=== PATIENT | female | born 1980 | race Caucasian/White ===

== ENCOUNTER 2017-04-24 17:23 | Emergency (ER) | payer OTHER, SELFPAY ==
[2017-04-24 17:35] VITALS: BP 99/80; PULSE 94; RESP 20; TEMP 36.8; O2SAT 100; BMI 23.6
--- NOTE | 2017-04-24 17:55 | HMH.EDUTC ---
[facility] [place] Clinical Impression: Upper respiratory infection Qualifiers: URI type: unspecified URI Qualified Code(s): J06.9 - Acute upper respiratory infection, unspecified Disposition: Home, Self-Care Condition on Discharge: Good Instructions: Sore Throat, DI for Fever (Symptom) -- Adult Additional Instructions: * Monitor Temp. Tylenol and/or Ibuprofen as needed. ER if fever is no less than 101 despite alternating Tylenol and Ibuprofen * Encourage fluids, water, Gatorade, powerade, pedialyte if /toddler/or child * Warm salt water gargles for throat irritation *Warm fluids *Sore throat lozenges *Sleep elevated *humidifier or vaporizer Lots of rest Increase fluids, water, Gatorade, powerade *Your throat swab was sent to lab for culture. Those results area typically sent to your primary care physician. Be sure to follow up in 2-3 days if no improvement so they can review those results and treat if necessary If you dont have primary care I recommend you get one, but in the mean time you will have to return to a walk in clinic Follow up IMMEDIATELY for new or worsening of symptoms OR no noticeable improvement over the next 48-72 hours. 911 immediately for any life threatening symptoms such as chest pain or difficulty breathing Prescriptions: Cefdinir [Omnicef 300mg Capsule] 300 mg PO BID #20 cap predniSONE [Prednisone 5mg Tab Dose-Pack] 5 mg PO UD DOSE PK #1 pack Promethazine/Dextromethorphan [Promethazine-Dm Syrup] 5 ml PO Q4H PRN #200 syrup PRN Reason: Cough Time of Disposition: 18:04 Medical Decision Making - Medical Records Medical records reviewed: Yes: I reviewed the patient's medical records. Vital Signs: 04/24/17 17:35 Temperature 98.2 F Temperature Source Temporal Artery Scan Pulse Rate [Right] 94 H Respiratory Rate 20 Blood Pressure [Right Arm] 99/80 Blood Pressure Mean [Right Arm] 86 Blood Pressure Source [Right Arm] Automatic Cuff Blood Pressure Position [Right Arm] Sitting 02 Sat by Pulse Oximetry 100 Oxygen Delivery Method Room Air - Yovany Inquiry Pt receiving controlled substance: No Yovany was queried for this patient: No [facility] [place] HPI - General Stated complaint: sore throat Mode of Arrival: Ambulatory Source of Information: Patient Limitations: No Limitations Description of Symptoms (Recalled from Triage Doc. by RN): SORE THROAT, BODY ACHES 2 DAYS HEENT Symptoms (Recalled from RN notes): Yes Resp Symptoms (Recalled from RN notes): No Skin Symptoms (Recalled from RN notes): No MS Symptoms (Recalled from RN notes): No Functional Status (Recalled from RN notes): N - History of Present Illness Provider Complaint: Patient state that she has been having sore throat and body aches for 2 days that has continued to get worse States that her throat feels raw and hurts when she swallows State that her joints have been hurting and she noticed that her throat was really red and irritated - Related Data Previous Rx's Medication Instructions Recorded Cefdinir [Omnicef 300mg Capsule] 300 mg PO BID #20 cap 04/24/17 Promethazine/Dextromethorphan 5 ml PO Q4H PRN #200 syrup 04/24/17 [Promethazine-Dm Syrup] predniSONE [Prednisone 5mg Tab 5 mg PO UD DOSE PK #1 pack 04/24/17 Dose-Pack] Allergies Allergy/AdvReac Type Severity Reaction Status Date / Time No Known Allergies Allergy Verified 04/24/17 17:42 - Worker's Comp Is this a Worker's Comp case?: No [facility] History I have reviewed the patient's past medical history: Yes - *Social History Alcohol Intake: never - Psychiatric History Expresses thoughts of harming self/others: None Suicide Plan Description: No Plan ROS Obtained: Yes All systems reviewed & no additional complaints Physical Exam - General General appearance: alert, in no apparent distress - Expanded ENT Exam Nose exam: Present: sinus tenderness Comment: Throat red irritated, drainage noted in back of throat - Respiratory Respiratory exam:
[2017-04-24 17:58] LABS: UTC Influenza A Antigen Negative (Negative); UTC Influenza B Antigen Negative (Negative); UTC Strep Screen (Rapid) Negative (Negative)
--- NOTE | 2017-04-24 18:00 | ED_ITS ---
[facility] – [place] Dis[place] Clinical Impression: Upper respiratory infection Qualifiers: URI type: unspecified URI Qualified Code(s): J06.9 - Acute upper respiratory infection, unspecified Disposition: Home, Self-Care Condition on Discharge: Good Instructions: Sore Throat, DI for Fever (Symptom) -- Adult Additional Instructions: * Monitor Temp. Tylenol and/or Ibuprofen as needed. ER if fever is no less than 101 despite alternating Tylenol and Ibuprofen * Encourage fluids, water, Gatorade, powerade, pedialyte if /toddler/or child * Warm salt water gargles for throat irritation *Warm fluids *Sore throat lozenges *Sleep elevated *humidifier or vaporizer Lots of rest Increase fluids, water, Gatorade, powerade *Your throat swab was sent to lab for culture. Those results area typically sent to your primary care physician. Be sure to follow up in 2-3 days if no improvement so they can review those results and treat if necessary If you don? t have primary care I recommend you get one, but in the mean time you will have to return to a walk in clinic Follow up IMMEDIATELY for new or worsening of symptoms OR no noticeable improvement over the next 48-72 hours. 911 immediately for any life threatening symptoms such as chest pain or difficulty breathing Prescriptions: Cefdinir [Omnicef 300mg Capsule] 300 mg PO BID #20 cap predniSONE [Prednisone 5mg Tab Dose-Pack] 5 mg PO UD DOSE PK #1 pack Promethazine/Dextromethorphan [Promethazine-Dm Syrup] 5 ml PO Q4H PRN #200 syrup PRN Reason: Cough Time of Disposition: 18:04 Medical Decision Making - Medical Records Medical records reviewed: Yes: I reviewed the patient's medical records. Vital Signs: 04/24/17 17:35 Temperature 98.2 F Temperature Source Temporal Artery Scan Pulse Rate [Right] 94 H Respiratory Rate 20 Blood Pressure [Right Arm] 99/80 Blood Pressure Mean [Right Arm] 86 Blood Pressure Source [Right Arm] Automatic Cuff Blood Pressure Position [Right Arm] Sitting 02 Sat by Pulse Oximetry 100 Oxygen Delivery Method Room Air - Yovany Inquiry Pt receiving controlled substance: No Yovany was queried for this patient: No [facility] [place] HPI - General Stated complaint: sore throat Mode of Arrival: Ambulatory Source of Information: Patient Limitations: No Limitations Description of Symptoms (Recalled from Triage Doc. by RN): SORE THROAT, BODY ACHES 2 DAYS HEENT Symptoms (Recalled from RN notes): Yes Resp Symptoms (Recalled from RN notes): No Skin Symptoms (Recalled from RN notes): No MS Symptoms (Recalled from RN notes): No Functional Status (Recalled from RN notes): N - History of Present Illness Provider Complaint: Patient state that she has been having sore throat and body aches for 2 days that has continued to get worse States that her throat feels raw and hurts when she swallows State that her joints have been hurting and she noticed that her throat was really red and irritated - Related Data Previous Rx's Medication Instructions Recorded Cefdinir [Omnicef 300mg Capsule] 300 mg PO BID #20 cap 04/24/17 Promethazine/Dextromethorphan 5 ml PO Q4H PRN #200 syrup 04/24/17 [Promethazine-Dm Syrup] predniSONE [Prednisone 5mg Tab 5 mg PO UD DOSE PK #1 pack 04/24/17 Dose-Pack] Allergies Allergy/AdvReac Type Severity Reaction Status Date / Time No Known Allergies Allergy Verified 04/24/17 17:42 - Wo
== END 2017-04-24 18:07 | disposition home or self-care (01) ==
PROVIDERS: Emergency Provider Nurse Practitioner
DX: J06.9 Acute upper respiratory infection, unspecified (principal)
CPT/HCPCS: 87804; 87880; 99202

== ENCOUNTER 2017-05-25 16:20 | Emergency (ER) | payer OTHER, SELFPAY ==
[2017-05-25 16:45] VITALS: BP 116/71; PULSE 70; RESP 20; TEMP 36.6; O2SAT 100; BMI 23.3
[2017-05-25 16:52] LABS: Apearance,Urine Cloudy (Clear); Bilirubin,Urine Negative (Negative); Blood, Urine Negative (Negative); Color,Urine Yellow (Yellow); Glucose,Urine (UA) Negative (Negative); Ketones,Urine Negative (Negative); PH,Urine 5.5 (5.0-8.5); Protein,Urine Trace (Negative); UTC Leukocyte Esterase,Urine Negative (Negative); Urobilinogen,Urine 0.2 EU/dl (0.2)
[2017-05-25 16:53] LABS: UTC Nitrate,Urine Negative (Negative); UTC Pregnancy Test, Urine Negative (Negative)
--- NOTE | 2017-05-25 17:05 | PC.NURSE ---
Triage nurse alerted me to patient's symptoms. VORB for u/a and urine . Both negative. Discussed HPI with pt. Started as bilateral lower back pain approx 2 weeks ago but has progressively gotten worse and throughout lower abdomen as well now. Hesitant to move or sit because worsens pain. Wearing maternity pants because regular pants hurt abdomen. Won't pick up driver child due to pain. Constant dull pain with intermittent sharp pains 9/10 despite eating advil like crazy . Nausea but no vomiting, diarrhea, fever. CERTIFIED OPHTHALMIC MEDICAL TECHNICIAN appt 06/12. Tried to get in sooner but not able. Discussed possible differentials and [facility] guidelines. Pt ok with transfer to ER for full abdominal pain evaluation. Report called to Alexandria Corea MITER OPERATOR. Bed 10 available. Report also given to Dr. Palacio, ER MD
[2017-05-25 17:20] VITALS: BP 109/73; PULSE 76; RESP 18; TEMP 37.2; O2SAT 100; BMI 23.3
--- NOTE | 2017-05-25 18:18 | US_ITS ---
US transvaginal Ordering Physician: Jason Dallas MD Patient Age: 36 years: Female HISTORY: ITS.REASON: pelvic pain, hx of endometriosis, ovarian cysts Right lower quadrant pain 3 days. HISTORY of cyst TECHNIQUE: Transvaginal pelvic ultrasound COMPARISON : FINDINGS Uterus appears upper normal in size. 9.6 cm length x 3.8 cm x 5.5 cm wide. Generous endometrial stripe measuring up to 1 cm maximally. A few of the images I question there could be a developing fibroid posteriorly at the upper body of uterus. This does not persist was not seen at real-time imaging by technologist. scar seen at the anterior aspect of lower uterus typical location. Nabothian cyst are noted. Towards cervical canal. The largest 7.3 mm size. Right ovaryl 2.8 cm length x 1.5 cm x 2.14 cm. Left ovary 3.4 cm x 2.4 cm. 1.7 cm. Scattered small follicles with the largest measuring 1 cm. Other tiny follicles about margin left ovary. No fluid the cul-de-sac. IMPRESSION: 1. Uterus upper normal size. Generous endometrial stripe measuring up to 1 cm maximally 2. Ovaries within normal limits. . left slight more generous than the right. Small follicles, both ovaries .. Small 1 cm follicle left ovary most notable No fluid in cul-de-sac
--- NOTE | 2017-05-25 18:49 | HMH.EDGENADL ---
ED Disposition Clinical Impression: Muscle strain Low back pain Qualifiers: Chronicity: acute Back pain laterality: unspecified Sciatica presence: without sciatica Qualified Code(s): M54.5 - Low back pain Ovarian cyst Qualifiers: Laterality: unspecified laterality Qualified Code(s): N83.209 - Unspecified ovarian cyst, unspecified side Disposition: Home, Self-Care Condition on Discharge: Good Instructions: DI for Muscle Strain Additional Instructions: Please apply Voltaren ointment over the affected area, take Tylenol as needed for pain, every 4-6 hours, find attached prescription for a muscle relaxant (Flexeril). Follow-up with 1 of the local fixture designer, Dr. Judah Martini if not better within the next 2-3 days. Prescriptions: Cyclobenzaprine HCl [Flexeril 10mg tablet] 10 mg PO TID #30 tab Referrals: Jamison Waldrop MD [Staff Physician] - Herb Martini MD [Staff Physician] - Time of Disposition: 18:49 - Critical Care Critical Care Time: No Attestation: On 05/25/17, the high probability of a clinically significant, sudden or life threatening deterioration of the following system(s) required my full and direct attention, intervention and personal management. The time I documented below is in addition to time spent performing reported procedures but includes the following listed in this critical care notation. Medical Decision Making - Medical Records Medical records reviewed: Yes: I reviewed the patient's medical records. Vital Signs: 05/25/17 16:45 05/25/17 17:20 05/25/17 19:02 Temperature 98 F 99.0 F 99.0 F Temperature Source Temporal Artery Scan Oral Pulse Rate 76 Pulse Rate [Right Radial] 70 76 Respiratory Rate 20 18 18 Blood Pressure 109/73 Blood Pressure [Right Arm] 116/71 109/73 Blood Pressure Mean [Right Arm] 86 85 Blood Pressure Source [Right Arm] Automatic Cuff Automatic Cuff Blood Pressure Position [Right Arm] Sitting Sitting 02 Sat by Pulse Oximetry 100 100 Oxygen Delivery Method Room Air Room Air Room Air - Lab Data Lab results reviewed: Yes: I reviewed the patient's lab results. Lab Results 05/25/17 16:43: Urine Color Yellow, Urine Appearance Cloudy, Urine pH 5.5, Ur Specific [place] 1.030, Urine Protein Trace, Urine Glucose (UA) Negative, Urine Ketones Negative, Urine Blood Negative, Urine Nitrate Negative, Urine Bilirubin Negative, Urine Urobilinogen 0.2, Ur Leukocyte Esterase Negative, Tst Clinic Negative - US Data US Images: Other (Transvaginal) ED US Reviewed: Yes: I have viewed radiologist's interpretation Findings Narrative: Small left ovarian cyst, fluid in the cul-de-sac - Yovany Inquiry Pt receiving controlled substance: No - Reevaluation(s) Time: 18:44 Reevaluation #1: Upon reevaluation patient appears medically stable, in no acute distress, advised of results obtained, need to follow-up with BLASTING WORKER for additional outpatient workup. General Adult HPI - General Chief complaint: PAIN Stated complaint: lower abd&back Mode of Arrival: Ambulatory Limitations: No Limitations Description of Symptoms (Recalled from ER Triage Doc. by RN): Pt reports lower back pain x1 week, reports pain is radiating around to pelvic area x2 days, describes pain at pressure like in nature. 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 Patient denies any vaginal discharge, nausea, vomiting, fever or diarrhea. She was sent from [facility] to be evaluated in the emergency room. - Related Data Home Medications Medication Instructions Recorded Confirmed Cyanocobalamin (Vitamin B-12) 500 mcg PO DAILY 05/25/17 05/25/17 [Vitamin B-12] Escitalopram Oxalate 20 mg PO DAILY 05/25/17 05/25/17 Previous Rx's
[2017-05-25 19:02] VITALS: BP 109/73; PULSE 76; RESP 18; TEMP 37.2; O2SAT 100
== END 2017-05-25 19:09 | disposition home or self-care (01) ==
LOC: UTC 16:26 → ER 17:16
PROVIDERS: Nurse Practitioner Family; Emergency Provider Emergency Medicine
DX: T14.8XXA Other injury of unspecified body region, initial encounter (principal); M54.5 Low back pain; N83.209 Unspecified ovarian cyst, unspecified side; Z79.899 Other long term (current) drug therapy
CPT/HCPCS: 76830; 81003; 81025; 99283

== ENCOUNTER → 2019-09-21 09:11 | Outpatient (CLI) | payer BC, SELFPAY ==
--- NOTE | 2019-09-21 | CA_ITS ---
APPROVED REPORT EXAM: Comprehensive 2D, Doppler, and color-flow Echocardiogram Television Service Engineer: Emerald Chavez CRT Ht: 5 ft 9 in Wt: 155lbs BSA: 1.85 BP: 110/70 mmHg Indications: CP, PALPITATIONS, LOOP RECORDER SINCE 2018, EDEMA 2D Dimensions LVOT 1.85 cm (M/F) 1.5-2.5 M-Mode Dimensions RVDd 2.64 cm (0.9-2.6) LVDd 4.29 cm (3.5-5.7) LVDs 2.99 cm (3.5-5.7) IVSd 1.30 cm (0.6-1.1) PWd 0.78 cm (0.6-1.1) EF (Teich) 58.00% FS 30.30% EDV (Teich) 82.60 mL ESV (Teich) 34.70 mL LV Diastology E/A Ratio 1.69 Mitral Valve MV A Velocity 46.00 (40-130 cm/s) Left Ventricle Left atrium is normal size, left ventricle is normal size, there is no concentric left ventricular hypertrophy, visually estimated ejection fraction 55% with no regional wall motion abnormality, diastolic parameters are within normal range. Right Ventricle Right atrium and right ventricle are normal size and contractility. Aortic Valve Aortic valve is grossly normal, there is no aortic stenosis or aortic insufficiency. Mitral Valve Mitral valve is grossly normal, there is trace mitral regurgitation. Tricuspid Valve Tricuspid valve is grossly normal, there is trace tricuspid regurgitation. Pulmonic Valve Pulmonic valve is poorly visualized. Great Vessels Aortic root is normal size. Pericardium No significant pericardial effusion noted. Conclusion 1. Normal left ventricular size, preserved left ventricular systolic function, visually estimated ejection fraction 55% with no regional wall motion abnormality, diastolic parameters are within normal range. 2. Trace mitral and tricuspid regurgitation. 3. No significant pericardial effusion noted. Electronically signed by : Rodrigo Crawford, 09/22/2019 12:17:49
== END ==
PROVIDERS: PCP Family Medicine; Visit Provider Family Medicine
DX: R07.89 Other chest pain (principal); R00.2 Palpitations
CPT/HCPCS: 93306

== ENCOUNTER → 2019-11-18 11:21 | Outpatient (CLI) | payer BC, SELFPAY ==
--- NOTE | 2019-11-18 11:40 | XR_ITS ---
PROCEDURE: XR LUMBAR SPINE MIN 4V CLINICAL INDICATION: LUMBAGO W SCIATICA, L SIDE COMPARISON: No exams were available for comparison FINDINGS: There is mild diffuse dextroscoliotic curvature between T10 and L5 measuring 13 degrees. All lumbar vertebrae appear intact and disc spaces appear normal throughout. There is no pars defect. The SI joints appear normal. IMPRESSION: Mild dextroscoliotic curvature, no other significant bony pathology identified Dictated by: Dr. Jason Zamudio MD 11/18/2019 12:08 Dr. Jason Zamudio MD in [place] 11/18/2019 12:08
== END ==
PROVIDERS: PCP Nurse Practitioner; Visit Provider Nurse Practitioner
DX: M54.42 Lumbago with sciatica, left side (principal)
CPT/HCPCS: 72110

== ENCOUNTER → 2019-11-25 13:04 | Outpatient (CLI) | payer BC, SELFPAY ==
--- NOTE | 2019-11-25 | MR_ITS ---
PROCEDURE: MR LUMBAR SPINE WO CON CLINICAL INDICATION: LBP Lbp with bilateral lower extremity pain. No injury or trauma. Prior x-ray 11-18-19 COMPARISON: CR XR LUMBAR SPINE MIN 4V from 11/18/2019 TECHNIQUE: Standard multiplanar multiecho sequences are performed without contrast. 3-D MIP and myelographic images are also rendered and reviewed FINDINGS: There is normal alignment. The spinal cord ends at the T12-L1 level. L1-L2: Unremarkable. L2-L3: Unremarkable. L3-L4: Unremarkable. L4-5: Minimal bulging disc with mild disc desiccation and mild facet and ligamentum hypertrophy. There is mild bilateral lateral recess narrowing and mild bilateral foraminal narrowing. L5-S1: Mild facet and ligamentum hypertrophy with minimal bulging disc IMPRESSION: 1. L4-5: Minimal bulging disc with mild disc desiccation and mild facet and ligamentum hypertrophy. There is mild bilateral lateral recess narrowing and mild bilateral foraminal narrowing. 2. L5-S1: Mild facet and ligamentum hypertrophy with minimal bulging disc 3. No disc herniation or canal stenosis Dictated by: Nick Mar MD 11/27/2019 11:07 Nick Mar MD in [place] 11/27/2019 11:07
== END ==
PROVIDERS: PCP Nurse Practitioner; Visit Provider Nurse Practitioner
DX: M54.5 Low back pain (principal); M54.10 Radiculopathy, site unspecified
CPT/HCPCS: 72148; 76376

== ENCOUNTER → 2021-02-08 16:44 | Outpatient (CLI) | payer BC, SELFPAY ==
--- NOTE | 2021-02-08 16:51 | XR_ITS ---
PROCEDURE INFORMATION: Exam: XR Chest Exam date and time: 02/08/2021 4:51 PM Age: 40 years old Clinical indication: Other: Covid patient; Additional info: Covid outpatient TECHNIQUE: Imaging protocol: XR of the chest. Views: 1 view. COMPARISON: CR CXR CHEST(2 VIEWS-NOT PORTABLE) 06/29/2014 9:12 AM FINDINGS: Tubes, catheters and devices: Electronic device projecting over the left thoracic wall soft tissues. Airway: Patent Lungs: Unremarkable. No consolidation. Pleural spaces: Unremarkable. No pleural effusion. No pneumothorax. Heart/Mediastinum: Unremarkable. No cardiomegaly. Bones/joints: No acute skeletal abnormality or aggressive osseous lesion. IMPRESSION: Negative for acute thoracic pathology.
[2021-02-08 17:42] LABS: Adenovirus,PCR Not Detected (NotDetected); Bordetella Pertussis Not Detected (NotDetected); Chlamydophila Pneumoniae, PCR Not Detected (NotDetected); Coronavirus 19, PCR Not Detected (NotDetected); Coronavirus 229E Not Detected (NotDetected); Coronavirus NL63 Not Detected (NotDetected); Coronavirus OC43 Not Detected (NotDetected); Coronovirus HKU1,PCR Not Detected (NotDetected); Human Metapneumovirus Not Detected (NotDetected); Influenza A, PCR Not Detected (NotDetected); Influenza AH1, 2009 Not Detected (NotDetected); Influenza AH1, PCR Not Detected (NotDetected); Influenza AH3,PCR Not Detected (NotDetected); Influenza B, PCR Not Detected (NotDetected); Mycoplasma Pneumoniae, PCR Not Detected (NotDetected); Parainfluenza 1, PCR Not Detected (NotDetected); Parainfluenza 2, PCR Not Detected (NotDetected); Parainfluenza 3, PCR Not Detected (NotDetected); Parainfluenza 4, PCR Not Detected (NotDetected); Respiratory Syncytial Virus Not Detected (NotDetected); Rhinovirus/Enterovirus Not Detected (NotDetected)
[2021-02-08 18:34] LABS: Chloride 104 mmol/L (98-107); Potassium 3.7 mmoL/L (3.5-5.1); Sodium 140 mmol/L (136-145)
[2021-02-08 18:36] LABS: Basophils # 0.2 K/mm3 (0-0.2); Basophils % 2.2 % (0.1-2.0); Blood Urea Nitrogen 14 mg/dl (7-17); Eosinophils # 0.9 K/mm3 (0.0-0.4); Eosinophils % 12.6 % (0.1-12.0); Estimated Glomerular Filt Rate 92 ml/min (>60); GFR (African American) 112 ML/MIN (>60); Hematocrit 43.2 % (37.0-47.0); Hemoglobin 14.5 g/dL (12.2-16.2); Lymphocytes # 2.7 K/mm3 (0.7-4.5); Lymphocytes % 37.4 % (10-50); Mean Corpuscular HGB Conc 33.5 g/dL (31.8-35.4); Mean Corpuscular Hemoglobin 30.9 pg (27.0-31.2); Mean Corpuscular Volume 92.2 fl (81-99); Mean Platelet Volume 8.4 fl (7.4-10.4); Monocytes # 0.4 K/mm3 (0.1-1.0); Monocytes % 5.6 % (1.7-9.3); Neutrophils # 3.1 K/mm3 (1.8-7.8); Neutrophils % 42.3 % (37.0-80.0); Platelet Count 269 K/mm3 (142-424); Red Blood Count 4.69 M/mm3 (4.20-5.40); Red Cell Distribution Width 13.4 % (11.5-17.5); White Blood Count 7.3 K/mm3 (4.8-10.8)
[2021-02-08 18:37] LABS: Alanine Aminotransferase 8 U/L (12-78); Albumin Level 4.6 g/dl (3.5-5.0); Albumin/Globulin Ratio 1.8 (1.1-1.8); Alkaline Phosphatase 52 U/L (38-126); Anion Gap 12.7 mEq/L (5-15); Aspartate Amino Transferase 24 U/L (14-36); Bilirubin,Total 0.8 mg/dl (0.2-1.3); Calcium 9.6 mg/dl (8.4-10.2); Carbon Dioxide 27 mmol/L (22.0-30.0); Globulin 2.6 g/dL (1.3-3.2); Glucose 119 mg/dl (74-100); Total Protein,Serum 7.2 g/dl (6.3-8.2)
[2021-02-08 18:43] LABS: C-Reactive Protein < 0.3 mg/L (0-4)
[2021-02-08 18:58] LABS: Monoscreen (Rapid) Negative (Negative)
[2021-02-08 19:00] LABS: Erythrocyte Sedimentation Rate 12 mm/hr (0-20)
[2021-02-08 19:22] LABS: 25-OH Vitamin D, Total 47.6 ng/mL (30-100)
== END ==
LOC: RAD 16:48 → COVID.OUT 17:11
PROVIDERS: PCP Nurse Practitioner; Visit Provider Nurse Practitioner
DX: Z20.822 Contact with and (suspected) exposure to COVID-19 (principal); R09.89 Other specified symptoms and signs involving the circulatory and respiratory systems; J06.9 Acute upper respiratory infection, unspecified; R53.83 Other fatigue; R52 Pain, unspecified
CPT/HCPCS: 71045; 80053; 82306; 85025; 85651; 86140; 86318; 87581; 87632; 87798; C9803; U0003; U0005

== ENCOUNTER → 2021-04-02 14:47 | Outpatient (CLI) | payer BC, SELFPAY | PROVIDERS: PCP Nurse Practitioner; Visit Provider Nurse Practitioner | DX: Z20.822 Contact with and (suspected) exposure to COVID-19 (principal) | CPT/HCPCS: C9803; U0003; U0005 ==

== ENCOUNTER 2021-04-12 14:21 | Emergency (ER) | payer BC, SELFPAY ==
--- NOTE | 2021-04-12 16:25 | HMH.EDUTC ---
[facility] [place]ression: Migraine Qualifiers: Migraine type: with aura Status migrainosus presence: without status migrainosus Intractability: not intractable Qualified Code(s): G43.109 - Migraine with aura, not intractable, without status migrainosus Disposition: Home, Self-Care Condition on Discharge: Good Instructions: DI for Migraine Additional Instructions: Drink plenty of fluids. Go home and rest. Follow up with your regular doctor. GO TO THE ER FOR ANY WORSENING SYMPTOMS Prescriptions: Ibuprofen [Ibuprofen 800mg Tablet] 800 mg PO Q8HP PRN #30 tab PRN Reason: Moderate Pain Transmission Status: Received by [facility] Promethazine HCl [Phenergan 25mg tab] 25 mg PO Q6H PRN #20 tab PRN Reason: Nausea And Vomiting Transmission Status: Received by [facility] Referrals: Raquel Alfaro APRN [Primary Care Provider] - Forms: Work/School Release Time of Disposition: 17:00 Medical Decision Making - Medical Records Medical records reviewed: No: I reviewed the patient's medical records. - Yovany Inquiry Pt receiving controlled substance: No Vital Signs: 04/12/21 16:32 04/12/21 16:50 Temperature 98.4 F 98.4 F Temperature Source Oral Pulse Rate 83 Pulse Rate [Left] 83 Respiratory Rate 18 18 Blood Pressure 119/79 Blood Pressure [Right Arm] 119/79 Blood Pressure Mean [Right Arm] 92 02 Sat by Pulse Oximetry 100 Orders (Tests/Meds): ED MEDICATIONS Discontinued Medications Generic Name Dose Route Start Last Admin Trade Name Freq PRN Reason Stop Dose Admin Ketorolac Tromethamine 60 mg 04/12/21 16:44 04/12/21 16:45 Ketorolac 60mg/2ml Vial IM 04/12/21 16:45 60 mg ONCE ONE Administration Methylprednisolone Sodium Succinate 125 mg 04/12/21 16:44 04/12/21 16:45 Methylprednisolone Sod Succ 125mg Vial IM 04/12/21 16:45 125 mg ONCE ONE Administration Promethazine HCl 25 mg 04/12/21 16:44 04/12/21 16:45 Promethazine Hcl 25mg/Ml 1ml Vial IM 04/12/21 16:45 25 mg ONCE ONE Administration [facility] [place] - General Stated complaint: h/a Time Seen by Provider: 04/12/21 16:25 - History of Present Illness Provider Complaint: She states that she has a migraine head ache that has been ongoing since yesterday. She does not get migraines frequently, but she has had a few in the past and she feels like that is what's going on now. She denies that this is the worst headache of her life. She denies any visual changes. She denies fever/chills/cough/congestion. She has had a negative covid-19 test yesterday. - Related Data Home Medications Medication Instructions Recorded Confirmed Cyanocobalamin (Vitamin B-12) 500 mcg PO DAILY 05/25/17 05/25/17 [Vitamin B-12] Escitalopram Oxalate 20 mg PO DAILY 05/25/17 05/25/17 Previous Rx's Medication Instructions Recorded Cyclobenzaprine HCl [Flexeril 10mg 10 mg PO TID #30 tab 05/25/17 tablet] Ibuprofen [Ibuprofen 800mg 800 mg PO Q8HP PRN #30 tab 04/12/21 Tablet] Promethazine HCl [Phenergan 25mg 25 mg PO Q6H PRN #20 tab 04/12/21 tab] Allergies Allergy/AdvReac Type Severity Reaction Status Date / Time No Known Allergies Allergy Verified 04/24/17 17:42 [facility] History - Hepatitis A Screen Attestation statement:: This patient has been screened for Hepatitis A risk factors. I have reviewed the patient's past medical history: Yes Medical History: Denies:: Cancer, Diabetes Mellitus Type 1, Diabetes Mellitus Type 2, MRSA Amputation: No - Social History Smoking Status: Never smoker Alcohol Intake: never ROS Obtained: Yes All systems reviewed & no additional complaints - Constitutional Constitutional: Reports as per HPI - Eyes Eyes: Denies eye discharge - ENT Ears, Nose, Mouth, and Throat: Denies dizziness, Denies otalgia, Denies sore throat, Denies vertigo/dizziness - Cardiovascular Cardiovascular: Denies chest pain
[2021-04-12 16:32] VITALS: BP 119/79; PULSE 83; RESP 18; TEMP 36.9; O2SAT 100; BMI 22.8
[2021-04-12 16:50] VITALS: BP 119/79; PULSE 83; RESP 18; TEMP 36.9
== END 2021-04-12 17:04 | disposition home or self-care (01) ==
LOC: UTC 14:23
PROVIDERS: Emergency Provider Nurse Practitioner Family; PCP Nurse Practitioner
DX: G43.109 Migraine with aura, not intractable, without status migrainosus (principal)
CPT/HCPCS: 96372; 99202; G0463

== ENCOUNTER 2021-05-17 15:30 | Outpatient (RCR) | payer BC, SELFPAY ==
--- NOTE | 2021-05-17 16:43 | HMH.RHREAS ---
Rehab Reassessment Rehab OP Re-assessment Start: 05/17/21 16:05 Freq: Status: Active Protocol: Document 05/17/21 16:07 JEVON (Rec: 05/17/21 16:25 JEVON [id number]) Electronically Signed By Damian Degroot, PT 05/17/21 16:07 Rehab Re-assessment Subjective Subjective Patient reports 40% improvement since start of care. Objective Objective Notes AROM: WFL MMT: WFL Pain: 2/10 currently; 8/10 at worst over past week Neuro: overall decreased frequency/intensity/duration of burning sensation of L 4/ 5 dermatomes. Special tests: - slump Assessment Progress Assessment Progressing as Expected Assessment Notes Patient is tolerating progression well. She has been seen for 3 treatment visits to date. Compliance noted with HEP. 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 She would benefit from continuing skilled PT services in order to address functional limitations with all bending/ lifting and work related activitie, as well as to progress core stabilization. Patient goals met STG 2 Goals Not Met All others Revised Goals NA Plan Plan Continue with current POC. Frequency of Therapy 2x/week Duration of therapy 4 weeks Time and Billing Re-Eval Time 15 Re-Eval Billing Units 1 PHYSICIAN CERTIFICATION: I certify the specified therapy services for Corie Ballard are required, authorized, and reviewed every 30 days.
== END 2021-05-17 15:35 | disposition home or self-care (01) ==
LOC: PT 15:30
PROVIDERS: PCP Nurse Practitioner; Visit Provider Nurse Practitioner
DX: M51.36 Other intervertebral disc degeneration, lumbar region (principal)
CPT/HCPCS: 97010; 97014; 97035; 97110; 97140; 97163; 97164; G0283

== ENCOUNTER → 2022-01-08 15:03 | Outpatient (CLI) | payer BC, SELFPAY ==
--- NOTE | 2022-01-08 15:07 | XR_ITS ---
FINAL REPORT CLINICAL HISTORY: cervical pain and spasm FINDINGS: AP and lateral Views were obtained. There is no acute fracture. There is no malalignment. The disc spaces are maintained. IMPRESSION: No acute process. Reviewed, Interpreted and Dictated by Shivam Allred III, MD Transcribed by Dashawn Roberson Authenticated and [facility]
== END ==
PROVIDERS: PCP Nurse Practitioner; Visit Provider Nurse Practitioner
DX: M54.2 Cervicalgia (principal); M62.838 Other muscle spasm
CPT/HCPCS: 72040

== ENCOUNTER → 2022-02-18 17:19 | Outpatient (CLI) | payer BC, SELFPAY ==
--- NOTE | 2022-02-18 17:19 | MR_ITS ---
PROCEDURE INFORMATION: Exam: MR Cervical Spine Without Contrast Exam date and time: 02/18/2022 5:23 PM Age: 41 years old Clinical indication: Pain; Cervicalgia; Additional info: Cervical spine pain. Bilateral shoulder pain x 6 months. Weakness in shoulders and a burning and sharp pain in shoulders. TECHNIQUE: Imaging protocol: Magnetic resonance imaging of the cervical spine without contrast. COMPARISON: CR XR CERVICAL SPINE 2V 01/08/2022 3:08 PM FINDINGS: Bones/joints: No fracture. Normal alignment. Spinal cord: Normal signal. No cord compression. C2-C3: No significant disc disease. No significant spinal stenosis. C3-C4: No significant disc disease. No significant spinal stenosis. C4-C5: There is a shallow disc osteophyte complex. There is mild facet hypertrophy. There is mild bilateral neural foraminal narrowing. C5-C6: No significant disc disease. No significant spinal stenosis. C6-C7: No significant disc disease. No significant spinal stenosis. C7-T1: No significant disc disease. No significant spinal stenosis. Soft tissues: Unremarkable. Vasculature: Expected flow voids in the vertebral arteries. IMPRESSION: Mild degenerative disc disease and facet hypertrophy. At C4/5, changes contribute to mild bilateral neural foraminal narrowing.
== END ==
LOC: RAD 17:19
PROVIDERS: PCP Nurse Practitioner; Visit Provider Nurse Practitioner
DX: M54.2 Cervicalgia (principal); M62.838 Other muscle spasm
CPT/HCPCS: 72141; 76376

== ENCOUNTER → 2022-10-07 13:24 | Outpatient (CLI) | payer BC, SELFPAY ==
--- NOTE | 2022-10-07 13:31 | ECG_ITS ---
APPROVED REPORT Exam: Resting ECG HR:59 bpm ECG Measurements Heart Rate 59 AXES DE 142 P 61 QRSd 88 QRS 66 QT 403 T 38 QTc 403 Conclusion SINUS BRADYCARDIA POSSIBLE LEFT ATRIAL ENLARGEMENT [-0.1mV P-WAVE IN V1/V2] BORDERLINE ECG UNCONFIRMED REPORT Electronically signed by : Beau Renteria MD 10/09/2022 21:39:49
[2022-10-07 14:16] LABS: Basophils # 0.1 K/mm3 (0-0.2); Basophils % 0.6 % (0.1-2.0); Eosinophils # 0.3 K/mm3 (0.0-0.4); Hematocrit 41.5 % (37.0-47.0); Hemoglobin 13.3 g/dL (12.2-16.2); Lymphocytes # 2.5 K/mm3 (0.7-4.5); Lymphocytes % 32.6 % (10-50); Mean Corpuscular HGB Conc 32.2 g/dL (31.8-35.4); Mean Corpuscular Hemoglobin 29.4 pg (27.0-31.2); Mean Corpuscular Volume 91.3 fl (81-99); Mean Platelet Volume 8.2 fl (7.4-10.4); Monocytes # 0.4 K/mm3 (0.1-1.0); Monocytes % 5.8 % (1.7-9.3); Neutrophils # 4.3 K/mm3 (1.8-7.8); Platelet Count 221 K/mm3 (142-424); Red Blood Count 4.54 M/mm3 (4.20-5.40); Red Cell Distribution Width 12.9 % (11.5-17.5); White Blood Count 7.6 K/mm3 (4.8-10.8)
[2022-10-07 15:49] LABS: Chloride 105 mmol/L (98-107); Sodium 139 mmol/L (136-145)
[2022-10-07 15:50] LABS: Potassium 4.3 mmoL/L (3.5-5.1)
[2022-10-07 15:52] LABS: Alanine Aminotransferase 16 U/L (12-78); Albumin Level 4.4 g/dl (3.5-5.0); Albumin/Globulin Ratio 1.7 (1.1-1.8); Alkaline Phosphatase 43 U/L (38-126); Anion Gap 9.3 mEq/L (5-15); Aspartate Amino Transferase 22 U/L (14-36); Bilirubin,Total 0.7 mg/dl (0.2-1.3); Blood Urea Nitrogen 16 mg/dl (7-17); Carbon Dioxide 29 mmol/L (22.0-30.0); Estimated Glomerular Filt Rate 109 ml/min (>60); GFR (African American) 132 ML/MIN (>60); Globulin 2.6 g/dL (1.3-3.2)
[2022-10-07 15:53] LABS: Calcium 9.1 mg/dl (8.4-10.2); Glucose 85 mg/dl (74-100)
[2022-10-07 16:23] LABS: Thyroid Stimulating Hormone 1.39 uIU/mL (0.465-4.68)
[2022-10-07 17:00] LABS: 25-OH Vitamin D, Total 48.1 ng/mL (30-100)
[2022-10-07 17:04] LABS: Hemoglobin A1C 5.4 % (4.0-6.0)
[2022-10-07 18:49] LABS: Vitamin B12 325 pg/mL (239-931)
== END ==
PROVIDERS: PCP Nurse Practitioner; Visit Provider Nurse Practitioner
DX: R55 Syncope and collapse (principal)
CPT/HCPCS: 36415; 80053; 82306; 82607; 83036; 84443; 85025; 93005

== ENCOUNTER → 2022-10-27 10:55 | Outpatient (CLI) | payer BC, SELFPAY ==
--- NOTE | 2022-10-27 10:56 | CA_ITS ---
APPROVED REPORT EXAM: Comprehensive 2D, Doppler, and color-flow Echocardiogram Feed Miller: Emerald Chavez CRT Ht: 5 ft 9 in Wt: 154lbs BSA: 1.85 BP: 114/78 mmHg Indications: Syncope 2D Dimensions LVOT 1.83 cm (M/F) 1.5-2.5 LA Volume 30.00 mL LA Volume Index 16.22 mL/m2 (M/F) 16-34 M-Mode Dimensions RVDd 3.22 cm (0.9-2.6) LA Diam 3.29 cm (1.9-4.0) LVDd 4.30 cm (3.5-5.7) Ao Diam 3.41 cm (2.0-3.7) LVDs 2.93 cm (3.5-5.7) IVSd 0.84 cm (0.6-1.1) PWd 0.93 cm (0.6-1.1) EF (Teich) 60.30% FS 31.90% EDV (Teich) 83.10 mL TAPSE 1.95 (<1.7) ESV (Teich) 33.00 mL LV Diastology E Decel Time 210.00 (160-240 msec) E/A Ratio 1.42 MED E' 12.20 (< 7 cm/sec) MED A' 6.80 cm/s E'/MED E' Ratio 7.00 (>14) LAT E' 16.60 (<10 cm/sec) LAT A' 11.60 cm/s E/LAT E' Ratio 5.14 (>14) Aortic Valve AO Peak GR. 4.40 mmHg Mitral Valve MV A Velocity 60.00 (40-130 cm/s) E/A Ratio 1.42 MV Decel. Time 210.00 (160-240 ms) Pulmonary Valve PV Peak Velocity 171.00 (50-150 cm/s) Tricuspid Valve TR P. Velocity 219.00 cm/s RAP Estimate 10.00 mmHg RVSP 29.30 mmHg Left Ventricle The left ventricle is normal size. The left ventricular systolic function is normal. The left ventricular ejection fraction is within the normal range. There is normal left ventricular wall thickness. There is normal LV segmental wall motion. The left ventricular diastolic function is normal. LVEF is 55%. Right Ventricle The right ventricle is mildly dilated. The right ventricular systolic function is normal. Atria The left atrium size is normal. The right atrium size is normal. There is no Doppler evidence of interatrial shunt. Aortic Valve The aortic valve is normal in structure. There is no aortic valvular stenosis. No aortic regurgitation is present. Mitral Valve The mitral valve is normal in structure. There is trace mitral valve regurgitation noted. Tricuspid Valve The tricuspid valve leaflets are thin and pliable. Mild tricuspid regurgitation. RVSP is 20-25 mmHg. Pulmonic Valve The pulmonary valve is normal in structure. Trace pulmonic regurgitation. Great Vessels The aortic root is normal in size. The ascending aorta is normal in size. IVC is normal in size and collapses >50% with inspiration. Pericardium There is no pericardial effusion. Other Information Study Quality: Adequate Conclusion Normal biventricular systolic function. Mildly dilated RV, with normal RV function. Mild TR. Electronically signed by : Meenu Lindquist, 10/27/2022 19:09:34
== END ==
PROVIDERS: PCP Nurse Practitioner; Visit Provider Nurse Practitioner
DX: R55 Syncope and collapse (principal)
CPT/HCPCS: 93306

== ENCOUNTER → 2023-01-22 13:57 | Outpatient (CLI) | payer BC, SELFPAY ==
--- NOTE | 2023-01-22 14:00 | XR_ITS ---
FINAL REPORT CLINICAL HISTORY: Rt Knee Pain popping couldn't walk for 5 days FINDINGS: Right knee Three views were obtained. There is no acute fracture or dislocation. There are mild degenerative changes. Small joint effusion is identified. IMPRESSION: Small joint effusion. Reviewed, Interpreted and Dictated by Shivam Allred III, MD Transcribed by [place] Authenticated and . [facility]
== END ==
PROVIDERS: PCP Nurse Practitioner; Visit Provider Orthopaedic Surgery
DX: M25.561 Pain in right knee (principal)
CPT/HCPCS: 73562

== ENCOUNTER → 2023-02-17 14:58 | Outpatient (CLI) | payer BC, SELFPAY ==
--- NOTE | 2023-02-17 14:59 | MR_ITS ---
FINAL REPORT CLINICAL HISTORY: knee pain AND INSTABILITY. FINDINGS: Multiplanar MR imaging of the right knee was performed without contrast. The medial and lateral menisci are intact without evidence of meniscal tear. The anterior and posterior cruciate ligaments are intact. The medial collateral ligament and lateral ligamentous complex are intact. The patellar and quadriceps tendons are intact. There is no evidence of fracture. There is 6 mm of lateral patellar subluxation. Mild chondromalacia is noted of the lateral patellar facet with a small fissure in this region visualized on series 3 image 11. Mild chondromalacia is noted of the medial compartment. A small joint effusion is seen. The musculature is intact. No soft tissue mass or cyst is identified. IMPRESSION: No evidence of meniscal or ligamentous injury. Mild lateral patellar subluxation. Mild medial and patellofemoral chondromalacia. Authenticated and ERN
== END ==
PROVIDERS: PCP Nurse Practitioner; Visit Provider Orthopaedic Surgery
DX: M25.561 Pain in right knee (principal); M25.562 Pain in left knee
CPT/HCPCS: 73721

== ENCOUNTER 2023-03-31 16:13 | Outpatient (POV) | payer BC, SELFPAY | END 2023-03-31 23:59 | disposition home or self-care (01) | LOC: SC 16:13 | PROVIDERS: PCP Nurse Practitioner; Visit Provider Dermatology | DX: Z00.00 Encounter for general adult medical examination without abnormal findings (principal) ==

== ENCOUNTER 2023-04-10 09:12 | Emergency (ER) | payer BC, SELFPAY ==
[2023-04-10 09:45] VITALS: BP 122/80; PULSE 103; RESP 21; TEMP 37.1; O2SAT 100; BMI 23.6
[2023-04-10 09:55] VITALS: BP 122/80; PULSE 103; RESP 21; TEMP 37.1; O2SAT 100
[2023-04-10 10:00] LABS: UTC Influenza A Antigen Negative (Negative); UTC Influenza B Antigen Negative (Negative); UTC Strep Screen (Rapid) Positive (Negative)
--- NOTE | 2023-04-10 10:08 | ED_ITS ---
Discharge Plan Disposition Patient Disposition: Home, Self-Care Condition: Good Prescriptions Prescriptions: New amoxicillin [amoxicillin] 875 mg tablet 875 mg PO Q12H Qty: 20 0RF [id number] [Bromfed DM] 2-30-10 mg/5 mL Syrup 5 ml PO Q6H PRN (Reason: Cough) Qty: 240 0RF methylprednisolone 4 mg Tablets,Dose Pack 4 mg PO DIRECTED 6 Days Qty: 21 0RF Rx Instructions: Take 1 pack as directed for 6 days ondansetron 4 mg Tablet,Disintegrating 4 mg PO Q8H PRN (Reason: Nausea) Qty: 12 0RF No Action escitalopram oxalate 20 mg tablet 20 mg PO DAILY Qty: 30 5RF Referrals Follow up/Referrals: Raquel Alfaro APRN [Primary Care Provider] - See instructions Activity Restrictions/Add. Instructions Additional Instructions/Restrictions: Drink plenty of fluids. Take tylenol or ibuprofen for pain or fever. Take the medications as directed. Follow up with your regular doctor. GO TO THE ER FOR ANY WORSENING SYMPTOMS Don't start the oral steroids until tomorrow, since you had the shot here today. Clinical Impressions Clinical Impression: Strep throat Stand Alone Forms Stand Alone Forms: Work/School Release Instructions Patient Instructions: Strep Throat, DI for Strep Throat, Ceftriaxone Injection, Dexamethasone Injection Discharge ED Provider: Ton Candelaria [facility] General Stated complaint: Sore throat, body aches, Mode of Arrival: Ambulatory Source of Information: Patient Limitations: No Limitations Time Seen by Provider: 04/10/23 10:08 Description of Symptoms (Recalled from Triage Doc. by RN): PATIENT C/O SORE THROAT, BODY ACHES AND CHILLS SINCE YESTERDAY HEENT Symptoms (Recalled from RN notes): Yes Resp Symptoms (Recalled from RN notes): No Skin Symptoms (Recalled from RN notes): No MS Symptoms (Recalled from RN notes): No Functional Status (Recalled from RN notes): WNL History of Present Illness Provider Complaint: She states that she has had very sore throat, chills, fever and malaise since yesterday. Related Data Previous Rx's Medication Instructions Recorded escitalopram oxalate 20 mg tablet 20 mg PO DAILY Anxiety #30 tabs 02/09/23 amoxicillin 875 mg tablet 875 mg PO Q12H #20 tabs 04/10/23 vbpyclbvedllfkv-wqvqrguvalcaqvr-XM 5 ml PO Q6H PRN Cough #240 mL 04/10/23 2 mg-30 mg-10 mg/5 mL oral syrup (Bromfed DM) methylprednisolone 4 mg tablets in 4 mg PO DIRECTED 6 days #21 tabs 04/10/23 a dose pack ondansetron 4 mg disintegrating 4 mg PO Q8H PRN Nausea #12 tabs 04/10/23 tablet Allergies Allergy/AdvReac Type Severity Reaction Status Date / Time No Known Allergies Allergy Verified 02/24/23 13:10 Worker's Comp Is this a Worker's Comp case?: No PFSH [facility] Disclaimer: The information contained in this section may have been updated after the patient was seen, as this information can be updated by other users. Medical History (Updated 04/10/23 @ 10:16 by Ton Candelaria APRN) Anxiety Migraine Pre-syncope Skin cancer of face Surgical History History of hysterectomy History of tonsillectomy Family History Other Cancer Diabetes Heart attack Hyperlipidemia Hypertension Stroke Social History Smoking Status: Never smoker alcohol intake: never current occupational status: employed Travel in the last 8 weeks: None ROS Obtained: Yes All systems reviewed & no additional complaints except as documented Constitutional Constitutional: Reports chills and Reports fever(s) Eyes Eyes: Denies eye discharge ENT Ears, Nose, Mouth, and Throat: Reports as per HPI Cardiovascular Cardiovascular: Denies chest pain Respiratory Respiratory: Denies chest congestion and Reports cough Gastrointestinal Gastrointestingal: Reports nausea; Denies abdominal pain, constipation, cramping, diarrhea or vomiting Musculoskeletal Musculoskeletal: Denies arthralgias Integumentary/Breasts Skin/Breast: Denies rash Neurologic Neurologic: Denies paresthesias Physical Exam General General appearance: alert and in no apparent distress Head Head exam: atraumatic, normocephalic and normal inspection Eye Eye exam: Present normal appearance, PERRL and EOMI ENT ENT exam: Present mucous membranes moist and normal external ear exam Expanded ENT Exam TM/Canal exam: Bilateral TM: erythema and bulging Nose exam: Absent sinus tenderness Mouth exam: Present normal external inspection; Absent drooling Teeth exam: Present normal inspection Throat exam: Present tonsillar erythema, tonsillomegaly and tonsillar exudate Neck Neck exam: Present normal inspection, full ROM and trachea midline; Absent tenderness, meningismus or lymphadenopathy Chest Chest inspection: Present normal inspection and symmetric chest wall rise; Absent tenderness Respiratory Respiratory exam: Present normal lung sounds bilaterally; Absent respiratory distress, wheezes or stridor Cardiovascular Cardiovascular exam: Present regular rate and normal rhythm; Absent systolic murmur or diastolic murmur Abdominal Exam Abdominal exam: Present soft and normal bowel sounds; Absent distention, te nderness, guarding, rebound or rigidity Extremities Exam Extremities exam: Present normal inspection and normal capillary refill; Absent calf tenderness Back Exam Back exam: Present normal inspection and full ROM; Absent tenderness, CVA tenderness (R) or CVA tenderness (L) Neurological Exam Neurological exam: Present alert, oriented X3 and CN II-XII intact Psychiatric Psychiatric exam: Present normal affect and normal mood Skin Skin exam: Present warm, dry, intact and normal color Medical Decision Making Medical Records Medical records reviewed: No I reviewed the patient's medical records. Yovany Inquiry Pt receiving controlled substance: No Vital Signs: 04/10/23 09:45 04/10/23 09:55 Temperature 98.7 F 98.7 F Temperature Source Oral Pulse Rate 103 H Pulse Rate [Left Brachial] 103 H Respiratory Rate 21 21 Blood Pressure 122/80 Blood Pressure [Left Arm] 122/80 Blood Pressure Mean [Left Arm] 94 Blood Pressure Source [Left Arm] Automatic Cuff Blood Pressure Position [Left Arm] Sitting 02 Sat by Pulse Oximetry 100 Oxygen Delivery Method Room Air Lab Data Lab results reviewed: Yes I reviewed the patient's lab results. Lab Results 04/10/23 09:48: Influenza Type A Ag Negative, Influenza Type B Ag Negative, Strep Scn Rapid Clinic Positive A
[2023-04-10] MEDS: cefTRIAXone 1GM VIAL 1 GM IM (10:26)
[2023-04-10] MEDS: DEXAMETHASONE 4MG/ML 1ML VIAL 8 MG IM (10:26)
[2023-04-10] MEDS: LIDOCAINE 1% 5ML PF VIAL IM (10:26)
== END 2023-04-10 10:44 | disposition home or self-care (01) ==
PROVIDERS: Emergency Provider Nurse Practitioner Family; PCP Nurse Practitioner
DX: J02.0 Streptococcal pharyngitis (principal); R07.0 Pain in throat; R50.9 Fever, unspecified; R11.0 Nausea; R53.81 Other malaise; M79.18 Myalgia, other site
CPT/HCPCS: 87804; 87880; 96372; 99212; 99214; G0463; J0696